=== PATIENT | female | born 1955 | race Caucasian/White ===

== ENCOUNTER 2017-08-03 09:42 | Inpatient (IN) | payer OTHER ==
[~2017-08-03] VITALS: Ht 154.9 cm; Wt 83.0 kg
[~2017-08-03 09:42] MED LIST: IBUPROFEN PO
[2017-08-03 10:46] LABS: BASOPHIL % 0.9 % (0-2); PLATELET COUNT 234 x10^3mcL (130-400); RED CELL DISTRIBUTION WIDTH 12.9 % (11.5-14.5)
[2017-08-03 10:59] LABS: CARBON DIOXIDE 26.9 mmol/L (21-32); CHLORIDE SERUM 105 mmol/L (98-107); CREATININE SERUM 0.7 mg/dL (0.6-1.0); GFR1 > 60 mL/min; GLUCOSE SERUM 104 mg/dL (74-106); POTASSIUM SERUM 3.9 mmol/L (3.5-5.1); SODIUM SERUM 136 mmol/L (136-145)
[2017-08-03 11:06] LABS: ALBUMIN 3.9 g/dL (3.4-5.0); ALKALINE PHOSPHATASE 76 U/L (46-116); ALT/SGPT 30 U/L (14-59); AST/SGOT 18 U/L (15-37); BILIRUBIN TOTAL 0.4 mg/dL (0.20-1.00); TOTAL PROTEIN, SERUM 7.3 g/dL (6.4-8.2)
[2017-08-03] MEDS ORDERED: SEREVENT D0.046 MG/1 IH (12:00)
[2017-08-03 15:26] VITALS: BP 113/55
[2017-08-03 15:29] VITALS: Ht 154.9 cm; Wt 83.0 kg
[2017-08-03 17:29] VITALS: BP 113/55
[2017-08-03 17:58] VITALS: BP 109/55
[2017-08-03] MEDS ORDERED: QVAR0.08 MG/Ac IH (19:17)
[2017-08-03] MEDS ORDERED: ZITHROMAX500 MG PO (19:17)
[2017-08-03 19:33] VITALS: BP 109/55
[2017-08-03 21:16] VITALS: BP 111/57
== END 2017-08-03 21:18 | disposition home or self-care (01) | DRG 144 ==
LOC: ED 09:42 → DU 12:06
PROVIDERS: Emergency Medicine
DX: J20.9 Acute bronchitis, unspecified (principal); J45.901 Unspecified asthma with (acute) exacerbation; Z88.2 Allergy status to sulfonamides; E66.9 Obesity, unspecified; G47.30 Sleep apnea, unspecified; E11.9 Type 2 diabetes mellitus without complications
CPT/HCPCS: 83880; 94150; J0456; J0696; J1885; J2405; J2930; J7030; J7613; J7620; J7644; Q0092

== ENCOUNTER 2018-11-09 03:44 | Emergency (ER) | payer OTHER ==
[~2018-11-09] VITALS: Ht 157.5 cm; Wt 74.0 kg
[~2018-11-09 03:44] MED LIST changes: +QVAR0.08 MG/Ac IH; +SEREVENT D0.046 MG/1 IH; +ZITHROMAX500 MG PO
[2018-11-09 03:48] VITALS: Ht 157.5 cm; Wt 74.0 kg
[2018-11-09 05:15] LABS: CALCIUM 8.7 mg/dL (8.5-10.1); CARBON DIOXIDE 27.7 mmol/L (21-32); CHLORIDE SERUM 108 mmol/L (98-107); CREATININE SERUM 0.8 mg/dL (0.6-1.0); GFR1 > 60 mL/min; GLUCOSE SERUM 120 mg/dL (74-106); POTASSIUM SERUM 3.4 mmol/L (3.5-5.1); SODIUM SERUM 144 mmol/L (136-145)
[2018-11-09 05:17] LABS: BASOPHIL % 0.6 % (0-2); PLATELET COUNT 174 x10^3mcL (130-400); RED CELL DISTRIBUTION WIDTH 12.7 % (11.5-14.5)
[2018-11-09 05:19] LABS: UA SPECIFIC GRAVITY 1.015 (1.005-1.035); microscopic required? YES; urine erythrocyte 3+ (NEGATIVE)
[2018-11-09 05:20] LABS: ALBUMIN 3.4 g/dL (3.4-5.0); ALKALINE PHOSPHATASE 58 U/L (46-116); ALT/SGPT 30 U/L (14-59); AST/SGOT 19 U/L (15-37); BILIRUBIN TOTAL 0.4 mg/dL (0.20-1.00); LIPASE 82 IU/L (73-393); TOTAL PROTEIN, SERUM 6.2 g/dL (6.4-8.2)
[2018-11-09 08:47] VITALS: BP 105/54
== END 2018-11-09 08:48 | disposition short-term general hospital (02) ==
LOC: ED 03:44
PROVIDERS: Emergency Medicine
DX: N20.1 Calculus of ureter (principal); N39.0 Urinary tract infection, site not specified; J45.909 Unspecified asthma, uncomplicated; Z88.2 Allergy status to sulfonamides; Z98.890 Other specified postprocedural states
CPT/HCPCS: J0696; J1885; J2270; J2405; J7030